=== PATIENT | female | born 1995 | race African-American/Black ===

== ENCOUNTER 2019-08-05 02:30 | Emergency (ER) | payer OTHER ==
[~2019-08-05] VITALS: Ht 170.2 cm; Wt 49.9 kg
[2019-08-05] MEDS ORDERED: FAMOTIDINE (20 MG) 20 MG TABLET ONE (03:17)
[2019-08-05] MEDS ORDERED: diphenhydrAMINE HCL 50 MG/ML VIAL ONE (03:17)
[2019-08-05] MEDS ORDERED: DEXAMETHASONE SOD PHOSPHATE 10 MG/ML VIAL ONE (03:17)
[2019-08-05] MEDS: diphenhydrAMINE HCL 50 MG/ML VIAL IM ONE (03:30)
[2019-08-05] MEDS: FAMOTIDINE (20 MG) 20 MG TABLET PO ONE (03:30)
[2019-08-05] MEDS: DEXAMETHASONE SOD PHOSPHATE 4 MG/ML VIAL IM ONE (03:30)
[2019-08-05 04:17] VITALS: BP 112/71
== END 2019-08-05 04:17 | disposition home or self-care (01) ==
LOC: ER 02:35
DX: L50.9 Urticaria, unspecified (principal); G40.909 Epilepsy, unspecified, not intractable, without status epilepticus
CPT/HCPCS: J1100; J1200